=== PATIENT | female | born 1975 | race Caucasian/White ===

== ENCOUNTER 2018-04-15 22:32 | Emergency (ER) | payer OTHER ==
[2018-04-15 23:59] LABS: #Eosinphils 0.3 thou/uL (0.0-0.7); #Lymphocytes 2.3 thou/uL (1.20-3.40); #Monocytes 0.8 thou/uL (0.11-0.59); #Neutrophils 6.8 thou/uL (1.40-6.50); %Basophils 0.5 % (0.0-1.0); %Eosinophils 2.5 % (0.0-10.0); %Lymphocytes 22.7 % (21.0-51.0); %Monocytes 7.6 % (0.0-10.0); %Neutrophils 66.7 % (42.0-75.0); Hemoglobin 15.8 g/dL (12.0-16.0); Mean Corpuscular HGB CONC 35.2 g/dL (32.0-36.0); Mean Corpuscular Hemoglobin 30.3 pg (27.0-31.0); Mean Corpuscular Volume 85.9 fL (78.0-98.0); Mean Platelet Volume 6.6 fL (7.4-10.4); Platelet Count 262 thou/uL (130-400); RBC Distribution Width 13.2 % (11.5-14.5); Red Blood Cell (RBC) Count 5.23 mill/uL (4.20-5.40); White Blood Cell (WBC) Count 10.1 thou/uL (4.8-10.8)
[2018-04-16 00:18] LABS: ALT (SGPT) 28 U/L (8-55); AST (SGOT) 31 U/L (5-34); Albumin 4.1 g/dL (3.5-5.0); Alkaline Phosphatase 95 U/L (40-150); Anion Gap 14 mmol/L (10-20); BHCG - Serum Negative (NEGATIVE); BUN (Urea Nitrogen) 11 mg/dL (7.0-18.7); Bilirubin, Total 0.2 mg/dL (0.2-1.2); Calc. Creatinine Clearance 0 mL/min (70-130); Calcium 9.3 mg/dL (7.8-10.44); Carbon Dioxide 24 mmol/L (22-29); Chloride 101 mmol/L (98-107); Estimated GFR-MDRD 70; Globulin 3.2 g/dL (2.4-3.5); Glucose 95 mg/dL (70-105); Lipase 36 U/L (8-78); Potassium 3.3 mmol/L (3.5-5.1); Pregs Control Background? CLEAR/WHITE (CLR/WHITE); Pregs Control Bar Appear? YES (CONTROL BAR); Protein, Total 7.3 g/dL (6.0-8.3); Sodium 136 mmol/L (136-145)
[2018-04-16 00:47] LABS: Bilirubin Negative (Negative); Blood, Urine Small (Negative); Clarity CLOUDY (Clear); Glucose, Urine (Dipstick) Negative (Negative); Leukocyte Large (Negative); Nitrite Positive (Negative); Protein, Urine (Dipstick) Negative (Neg-Trace); Specific Gravity, Urine 1.014 (1.002-1.036); Urobilinogen 0.2 mg/dL (0.2-1.0); pH, Urine 5.5 (5.0-9.0)
[2018-04-16] MEDS ORDERED: Ondansetron PF 4 MG/2 ML Vial ONE (00:49)
[2018-04-16 00:50] LABS: Bacteria/HPF 4+ HPF (None Seen); Hyaline Casts/LPF 4-6 HYALINE CAST LPF (0-3 Hyaline); Pathc Cast-AUWi Flag 0.87 (0-2.49); Squamous Epithelial 0-3 HPF (0-3)
== END 2018-04-16 01:14 | disposition home or self-care (01) ==
LOC: ERS 22:32
DX: N39.0 Urinary tract infection, site not specified (principal); J44.9 Chronic obstructive pulmonary disease, unspecified; I34.1 Nonrheumatic mitral (valve) prolapse; E66.9 Obesity, unspecified; F41.9 Anxiety disorder, unspecified; F43.10 Post-traumatic stress disorder, unspecified; F31.9 Bipolar disorder, unspecified; F17.210 Nicotine dependence, cigarettes, uncomplicated
CPT/HCPCS: 36415; 80053; 81003; 81015; 83690; 84703; 85025; 87077; 87086; 87186; 96372; 96374; J2405

== ENCOUNTER 2018-04-24 21:44 | Emergency (ER) | payer OTHER ==
[2018-04-24] MEDS ORDERED: Lidocaine 1% (PF) 30 ML VIAL ONE (22:27)
[2018-04-24] MEDS ORDERED: Ketorolac Tromethamine 30 MG/ML VIAL ONE (22:27)
--- NOTE | 2018-04-24 23:05 | RAD ---
THORACIC SPINE THREE VIEWS: HISTORY: Back pain. FINDINGS: AP, lateral, and Swimmer's views of the thoracic spine demonstrate no evidence of thoracic spine frac tures, subluxations, or bony lesions. IMPRESSION: Normal three views thoracic spine. POS: [email or web address]
--- NOTE | 2018-04-24 23:06 | RAD ---
LUMBAR SPINE THREE VIEWS: HISTORY: Back pain. FINDINGS: AP, lateral, and cone-down views of the lumbar spine demonstrate some small anterior osteophytes ale g the anterior aspect of the T12 and L1 vertebrae. No evidence of acute fractures, subluxations, or bony lesions seen. Disk spaces are well maintained. IMPRESSION: No evidence of acute lumbar spine pathology seen. POS: [email or web address]
== END 2018-04-24 23:35 | disposition home or self-care (01) ==
LOC: ERS 21:44
DX: M54.5 Low back pain (principal); M54.6 Pain in thoracic spine; E66.9 Obesity, unspecified; J44.9 Chronic obstructive pulmonary disease, unspecified; F41.9 Anxiety disorder, unspecified; F43.10 Post-traumatic stress disorder, unspecified; F31.9 Bipolar disorder, unspecified; F17.210 Nicotine dependence, cigarettes, uncomplicated; W01.0XXA Fall on same level from slipping, tripping and stumbling without subsequent striking against object, initial encounter
CPT/HCPCS: 72070; 72100; 96372; 96374; J1885; J2001